=== PATIENT | male | born 1985 | race Caucasian/White ===

== ENCOUNTER → 2018-05-24 15:57 | Outpatient (CLI) | payer OTHER, SELFPAY ==
--- NOTE | 2018-05-24 16:45 | MRI_ITS ---
STUDY: MRI BRAIN WITH AND WITHOUT CONTRAST REASON FOR EXAM: Male, 32 years old. Hypogonadism. TECHNIQUE: Standardized multiplanar fat and water weighted pulse sequences were obtained. 13 ml of Gadavist contrast material was administered intravenously for the contrast portion of the examination. COMPARISON: None. FINDINGS: The pituitary gland is normal in size and demonstrates no abnormal areas of signal or enhancement within it. . The pineal region is normal. The brainstem is normal. The corpus callosum is normal. The 7th and 8th nerve complexes are normal. Both cerebellopontine angles are clear. The cerebellar vermis and lobes are normal. The ventricles, basal cisterns and cortical sulci are normal with no midline shift and no intra or extra-axial hemorrhage or tumor mass. There is no acute infarction. The calvarium is intact. There are no scalp swelling. The vessels at the base of the brain are normal. The orbits, paranasal sinuses and mastoid air cells are normal.. MRI/Brain W/WO Contrast IMPRESSION: This study is within normal limits. The pituitary gland in particular is normal Electronically Signed: Moncho Velasquez MD at 4:45 EST Tel , Service support ,
--- OUTSIDE RECORDS SUMMARY | 2018-07-19 15:38 | XMS RPT_ITS ---
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 E29.1(ICD-10) Hospital Repository PROCEDURES PROCEDURES No Procedure Records FoundRESULTS RESULTS BRAIN W/WO CONTRAST Observed: 05/24/2018 Status: F Source: [facility] 4:01 PM [facility] REPOSITORY [facility] Imaging Services [address] [place] [address] Brain W/WO Contrast MR#: [id number] Acct: [id number] Name: ANUJ ANTONIO Rep #: [id number] : 1985 M 32 From: Moncho Velasquez MD PCP: Myron Carvajal DO Status: REG CLI Study: Brain W/WO Contrast Date of Exam: 05/24/18 Exam# [id number] Ordering Dr: Angélica Liang MD STUDY: MRI BRAIN WITH AND WITHOUT CONTRAST REASON FOR EXAM: Male, 32 years old. Hypogonadism. TECHNIQUE: Standardized multiplanar fat and water weighted pulse sequences were obtained. 13 ml of Gadavist contrast material was administered intravenously for the contrast portion of the examination. COMPARISON: None. FINDINGS: The pituitary gland is normal in size and demonstrates no abnormal areas of signal or enhancement within it. . The pineal region is normal. The brainstem is normal. The corpus callosum is normal. The 7th and 8th nerve complexes are normal. Both cerebellopontine angles are clear. The cerebellar vermis and lobes are normal. The ventricles, basal cisterns and cortical sulci are normal with no midline shift and no intra or extra-axial hemorrhage or tumor mass. There is no acute infarction. The calvarium is intact. There are no scalp swelling. The vessels at the base of the brain are normal. The orbits, paranasal sinuses and mastoid air cells are normal.. MRI/Brain W/WO Contrast IMPRESSION: This study is within normal limits. The pituitary gland in particular is normal Electronically Signed: Moncho Velasquez MD at 4:45 EST Tel , Service support , CC: Angélica Liang MD; Myron Carvajal DO Housekeeping Worker: Signed TESTO Collected: 04/11/2018 Status: F Source: [facility] 7:57 AM [facility] REPOSITORY TYPE CODE TESTS RESULT OUT OF REFERENCE UNITS RANGE LAB TESTO(LOIN 241.0-827.0 ng/dL C) Low Testosterone Lvl 213.3 Performed By: #### TESTO #### [place] [address] CBC Collected: 03/22/2018 Status: F Source: [facility] 7:37 AM [facility] REPOSITORY TYPE CODE TESTS RESULT OUT OF REFERENCE UNITS RANGE LAB WBC(LOINC) 4.60-10.80 10 3/mcL WBC 6.40 LAB RBCCT(LOINC 4.04-6.13 10 6/mcL ) RBC 4.97 LAB HGB(LOINC) 14.0-18.0 G/dL Hgb 14.9 LAB HCT(LOINC) 42.0-52.0 % Hct 43.7 LAB MCV(LOINC) 80.0-94.0 fL MCV 87.9 LAB MCH(LOINC) 27.0-31.2 pg MCH 29.9 LAB MCHC(LOINC) 31.8-35.4 G/dL MCHC 34.0 LAB RDW(LOINC) 11.5-14.5 % RDW 13.3 LAB PLT(LOINC) 130-400 10 3/mcL Platelet 187 LAB MPV(LOINC) 7.4-10.4 fL MPV 7.7 Performed By: #### TSH, FT4, CORTA, A1C, FSH, PROL, LH, PSA, FT3, SHBGP #### [place] [address] #### ADIFF, ESTGEN, ANEU, CBC #### [address] [address] .AUTO DIFF Collected: 03/22/2018 Status: F Source: [facility] 7:37 AM [facility] REPOSITORY TYPE CODE TESTS RESULT OUT OF REFERENCE UNITS RANGE LAB KULDIP(LOINC) 37.0-80.0 % Neutrophil % 55.0 LAB LYM(LOINC) 10.0-50.0 % Lymphocyte % 32.5 LAB MON(LOINC) 1.7-13.0 % Monocyte % 10.1 LAB EO(LOINC) 0.0-7.0 % Eosinophil % 1.8 LAB BAS(LOINC) 0.0-2.5 % Basophil % 0.6 LAB ABLYM(LOIN 0.77-3.85 10 3/mcL C) Lymphocyte, 2.10 Absolute LAB NARCISA(LOINC 0.15-1.00 10 3/mcL ) Monocyte, 0.60 Absolute LAB AEOS(LOINC 0.00-0.40 10 3/mcL ) Eosinophil, 0.10 Absolute LAB ABAS(LOINC 0.00-0.19 10 3/mcL ) Basophil, 0.00 Absolute Performed By: #### TSH, FT4, CORTA, A1C, FSH, PROL, LH, PSA, FT3, SHBGP #### [place] [address] #### ADIFF, ESTGEN, ANEU, CBC #### [address] [address] .NEUABS Collected: 03/22/2018 Status: F Source: [facility] 7:37 AM [facility] REPOSITORY TYPE CODE TESTS RESULT OUT OF REFERENCE UNITS RANGE LAB ANEU(LOINC) 2.85-6.16 10 3/mcL Neutrophil, 3.50 Absolute Performed By: #### TSH, FT4, CORTA, A1C, FSH, PROL, LH, PSA, FT3, SHBGP #### [place] [address] #### ADIFF, ESTGEN, ANEU, CBC #### [place] [id number] PSA Collected: 03/22/2018 Status: F Source: [facility] 7:37 [facility] REPOSITORY TYPE CODE TESTS RESULT OUT OF REFERENCE UNITS RANGE LAB PSA(LOINC) 0.00-4.00 ng/mL Prostate 0.59 Specific Antigen Performed By: #### TSH, FT4, CORTA, A1C, FSH, PROL, LH, PSA, FT3, SHBGP #### [place] [address] #### ADIFF, ESTGEN, ANEU, CBC #### [place] [id number] TSH Collected: 03/22/2018 Status: F Source: [facility] 7:37 [facility] REPOSITORY TYPE CODE TESTS RESULT OUT OF RANGE REFERENCE UNITS LAB TSH(LOINC) 0.36-3.74 mcIU/mL TSH 3.59 Performed By: #### TSH, FT4, CORTA, A1C, FSH, PROL, LH, PSA, FT3, SHBGP #### [place] [address] #### ADIFF, ESTGEN, ANEU, CBC #### [address] [address] FT4 Collected: 03/22/2018 Status: F Source: [facility] 7:37 AM [facility] REPOSITORY TYPE CODE TESTS RESULT OUT OF RANGE REFERENCE UNITS LAB FT4(LOINC) 0.76-1.46 ng/dL Free T4 1.00 Performed By: #### TSH, FT4, CORTA, A1C, FSH, PROL, LH, PSA, FT3, SHBGP #### [place] [address] #### ADIFF, ESTGEN, ANEU, CBC #### [address] [address] FT3 Collected: 03/22/2018 Status: F Source: [facility] 7:37 AM [facility] REPOSITORY TYPE CODE TESTS RESULT OUT OF RANGE REFERENCE UNITS LAB FT3(LOINC) 2.30-4.00 pg/mL Free T3 3.13 Performed By: #### TSH, FT4, CORTA, A1C, FSH, PROL, LH, PSA, FT3, SHBGP #### [place] [address] #### ADIFF, ESTGEN, ANEU, CBC #### [address] [address] A1C Collected: 03/22/2018 Status: F Source: [facility] 7:37 AM [facility] REPOSITORY TYPE CODE TESTS RESULT OUT OF RANGE REFERENCE UNITS LAB A1C(LOINC) 4.5-6.2 % Hgb A1c 5.2 Performed By: #### TSH, FT4, CORTA, A1C, FSH, PROL, LH, PSA, FT3, SHBGP #### [place] [address] #### ADIFF, ESTGEN, ANEU, CBC #### [address] [address] CORTA Collected: 03/22/2018 Status: F Source: [facility] 7:37 AM [facility] REPOSITORY TYPE CODE TESTS RESULT OUT OF RANGE REFERENCE UNITS LAB CORTA(LOINC 6.5-26.0 mcg/dL ) Cortisol, 15.0 AM Performed By: #### TSH, FT4, CORTA, A1C, FSH, PROL, LH, PSA, FT3, SHBGP #### [address] [address] #### ADIFF, ESTGEN, ANEU, CBC #### [address] [address] LH Collected: 03/22/2018 Status: F Source: [facility] 7:37 AM [facility] REPOSITORY TYPE CODE TESTS RESULT OUT OF RANGE REFERENCE UNITS LAB LH(LOINC) 1.5-9.3 mIU/mL LH 2.1 Result Comment: Adult Female LH Reference Ranges (06/30/11): Follicular phase 1.7 - 15.0 mIU/mL Midcycle phase 21.9 - 56.6 mIU/mL Luteal phase 0.6 - 16.3 mIU/mL Post menopausal 14.2 - 52.3 mIU/mL Performed By: #### TSH, FT4, CORTA, A1C, FSH, PROL, LH, PSA, FT3, SHBGP #### [address] [address] #### ADIFF, ESTGEN, ANEU, CBC #### [address] [address] PROL Collected: 03/22/2018 Status: F Source: [facility] 7:37 AM [facility] REPOSITORY TYPE CODE TESTS RESULT OUT OF REFERENCE UNITS RANGE LAB PROL(LOINC 2.0-18.0 ng/mL ) Prolactin 7.1 Performed By: #### TSH, FT4, CORTA, A1C, FSH, PROL, LH, PSA, FT3, SHBGP #### [address] [address] #### ADIFF, ESTGEN, ANEU, CBC #### [address] [address] FSH Collected: 03/22/2018 Status: F Source: [facility] 7:37 AM [facility] REPOSITORY TYPE CODE TESTS RESULT OUT OF RANGE REFERENCE UNITS LAB FSH(LOINC) 1.4-18.1 mIU/mL FSH 2.8 Result Comment: Adult Female FSH Reference Ranges (05/18/99): Follicular phase 2.5 - 10.2 mIU/mL Midcycle phase 3.4 - 33.4 mIU/mL Luteal phase 1.5 - 9.1 mIU/mL Post menopausal 23.0 -116.3 mIU/mL Adult Male: 1.4 - 18.1 mIU/mL Performed By: #### TSH, FT4, CORTA, A1C, FSH, PROL, LH, PSA, FT3, SHBGP #### [facility] [address] [place] [address] #### ADIFF, ESTGEN, ANEU, CBC #### [facility] [address] [place], [place] [address] ESTGEN Collected: 03/22/2018 Status: F Source: [facility] 7:37 AM [facility] REPOSITORY TYPE CODE TESTS RESULT OUT OF REFERENCE UNITS RANGE LAB ESTRAD(CHERISE NC) Estradiol Lvl 13.7 Result Comment: Reference range: 10.0 to 42.0 Unit: pg/mL (NOTE) REFERENCE INTERVAL: Estradiol by TMS Access complete set of age- and/or gender-specific reference intervals for this test in the [facility] Test Directory ([facility]). Test developed and characteristics determined by [facility]. See Compliance Statement B: [facility] LAB ESTR(LOINC) Estrone Lvl 15.7 Result Comment: Reference range: 9.0 to 36.0 Unit: pg/mL (NOTE) REFERENCE INTERVAL: Estrone by TMS Access complete set of age- and/or gender-specific reference intervals for this test in the [facility] Test Directory ([facility]). Test developed and characteristics determined by [facility]. See Compliance Statement B: [facility] LAB ESTROG(LOINC) Estrogens Total 29.4 Result Comment: Reference range: 19.0 to 69.0 Unit: pg/mL (NOTE) REFERENCE INTERVAL: Estrogens Total Calculation Access complete set of age- and/or gender-specific reference intervals for this test in the [facility] Test Directory ([facility]). Performed by [facility], [address] [facility] [place] [address] [email or web address], Greg Hernandez MD, Lab. Director Performed By: #### TSH, FT4, CORTA, A1C, FSH, PROL, LH, PSA, FT3, SHBGP #### [address] [address] #### ADIFF, ESTGEN, ANEU, CBC #### [address] [address] SHBGP Collected: 03/22/2018 Status: F Source: [facility] 7:37 AM [facility] REPOSITORY TYPE CODE TESTS RESULT OUT OF REFERENCE UNITS RANGE LAB TESTO(LOIN 241.0-827.0 ng/dL C) Low Testosterone Lvl 234.9 LAB SHBG(LOINC 7.2-100.0 mmol/L ) Sex Hormone Bind. 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 + red, swollen area. + pain and warm to the touch. Denies fever/chills. Started like a bruise per patient after dropping something on the leg 5 days ago. Denies SOB. No past medical history on file. ALLERGIES Amoxicillin MEDICATIONS No current outpatient prescriptions on file. No current facility-administered medications for this visit. SOCIAL HISTORY Social History Marital status: Spouse name: Years of education: Number of children: Social History Main Topics Smoking status: Never Smoker Smokeless status: Never Used REVIEW OF SYSTEMS All other reviewed and negative other than HPI. OBJECTIVE: BP 146/88 Pulse 76 Temp 37.1 ?C (98.7 ?F) (Tympanic) Resp 18 Wt (!) 169.6 kg (374 lb) APPEARANCE Well appearing, alert, in no acute distress, well-hydrated, well nourished. EXT left anterior proximal thigh with 5x 8 cm area of ecchymosis, mild edema. No erythema or warmth. + mild TTP. No distal LE edema. ASSESSMENT/PLAN: 1. Contusion of left thigh, initial encounter - ICD9: 924.00, ICD10: S70.12XA No obvious infection. No distal LE swelling. Ice. Elevation, tylenol/motrin F/u in 2-3 weeks if not resolving, sooner if worsening sx Reviewed red flags and when to seek care sooner. The patient indicates understanding of these issues and agrees with the plan. Farrah Stevens PA-C CNOV Observed: 08/29/2017 Status: COMPLETED Source: [place] 7:15 PM [facility] REPOSITORY Office Visit (WSTR) ANUJ ANTONIO ([id number]) 1985 M Date Time Provider Department 08/29/17 7:15 PM FARRAH STEVENS) WSTR During your visit today, we recorded the following information about you: Temperature Pulse Respiration Blood pressure 98.7 degrees 76/minute 18/minute 146/88 Weight 169.6 kg Farrah Stevens PA-C 08/29/2017 8:23 PM Signed 08/29/2017 Patient presents with: sore on left upper thigh: dropped something on it yesterday and it was a bruise about 1ANDquot; in size-not it is red and extends about 5ANDquot; and very sore/warm to touch SUBJECTIVE: This is a 32 year old that is here today for Complaint(s) of sore on left upper thigh x yesterday. + red, swollen area. + pain and warm to the touch. Denies fever/chills. Started like a bruise per patient after dropping something on the leg 5 days ago. Denies SOB. No past medical history on file. ALLERGIES Amoxicillin MEDICATIONS No current outpatient prescriptions on file. No current facility-administered medications for this visit. SOCIAL HISTORY Social History Marital status: Spouse name: Years of education: Number of children: Social History Main Topics Smoking status: Never Smoker Smokeless status: Never Used REVIEW OF SYSTEMS All other reviewed and negative other than HPI. OBJECTIVE: BP 146/88 Pulse 76 Temp 37.1 ?C (98.7 ?F) (Tympanic) Resp 18 Wt (!) 169.6 kg (374 lb) APPEARANCE Well appearing, alert, in no acute distress, well- hydrated, well nourished. EXT left anterior proximal thigh with 5x 8 cm area of ecchymosis, mild edema. No erythema or warmth. + mild TTP. No distal LE edema. ASSESSMENT/PLAN: 1. Contusion of left thigh, initial encounter - ICD9: 924.00, ICD10: S70.12XA No obvious infection. No distal LE swelling. Ice. Elevation, tylenol/motrin F/u in 2-3 weeks if not resolving, sooner if worsening sx Reviewed red flags and when to seek care sooner. The patient indicates understanding of these issues and agrees with the plan. Farrah Stevens PA-C Referring Provider: SELF [200] Allergies As of Date: 08/29/2017 Noted Allergy Reaction AMOXICILLIN 08/29/2017 2 - Rash Date Reviewed: 08/29/2017 Reviewed by: [place] LPN - Fully Assessed Reason for Visit: sore on left upper thigh [Other] Cmt: dropped something on it yesterday and it was a bruise about 1 in size-not it is red and extends about 5 and very sore/warm to touch Primary Visit Diagnosis:Contusion of left thigh, initial encounter [S70.12XA] Problem List As Of Date: 08/29/2017 (None) Encounter Status:Closed by FARRAH STEVENS PA-C on 08/29/17 ALLERGIES ALLERGIES No Allergies Records FoundENCOUNTERS ENCOUNTERS ADMIT/DISCHARGE ACCOUNT NUMBER ADMITTING ENCOUNTER LOCATION SOURCE CLASS 05/24/2018 [id number] Ambulatory [facility] ding:MRI Repository 04/11/2018/04/11/20 [id number] Ambulatory [address] ding:[facility]AB [facility] Repository 03/22/2018/03/22/20 [id number] Ambulatory [address] ding:OLAB [facility] Repository 08/29/2017/08/31/19 [id number] Ambulatory [address] Repository PAYERS PAYERS ENCOUNTER GUARANTOR PAYER SUBSCRIBER SOURCE 05/24/2018 ANUJ Rivera Primary [id number] [address]Qaanct ARCHERDOB: [facility] Number: [id number], [place] [id number] Repository [address]Vwx: [phone]) Date:[id number] [phone] () [address] [place] [address]WP: 05/24/2018 [facility] Number: Effective Repository Date:2018-05-21 04/11/2018 ANUJ Rivera Primary JULISSA ARCHERDOB: [facility] ARCHERDOB: Insurance:UMRPolic [id number] [facility] [id number] Number: [address] [place] [address] Repository [facility] [id number] [place], [place] Date:2018-04-11 [id number]: [phone]: [phone] [id number] [phone] Name:CPO Valenzuela ()Tel: [phone] ()Tel: [phone], [phone] () [phone] (WP) [place] [address]PB: 03/22/2018 ANUJ COSTA ARCHERDOB: [facility] ARCHERDOB: Insurance:[employer] [id number] [facility] [id number] Number: [address] [facility] M[address] [id number] [place], [place] Date:2018-03-22 [id number]: [phone]: [phone] [id number] [phone] Name:SEASONAL [employer]AX PREPARER Box (HP)Tel: [phone] ()Tel: [phone], [phone] () [phone] () [place] [address]XW:
== END ==
PROVIDERS: Family Provider Preventive Medicine Occupational Medicine; PCP Preventive Medicine Occupational Medicine; Referring Provider Internal Medicine Endocrinology, Diabetes & Metabolism; Visit Provider Internal Medicine Endocrinology, Diabetes & Metabolism
DX: E29.1 Testicular hypofunction (principal)
CPT/HCPCS: 70553; A9585